=== PATIENT | female | born 1990 | race Caucasian/White ===

== ENCOUNTER 2017-01-30 03:00 | Emergency (ER) | payer OTHER ==
[~2017-01-30] VITALS: Ht 149.9 cm; Wt 63.5 kg
--- NOTE | 2017-01-30 03:00 | NUR ---
PT BIB [facility], PREBOOK. TAKEN TO OF
--- NOTE | 2017-01-30 03:00 | NUR ---
PT STATES SHE REFUSES ALL MEDICAL TREATMENT, ER MD DR BETHEA AWARE
--- NOTE | 2017-01-30 03:01 | NUR ---
Dr. Escalante evaluating patient
--- NOTE | 2017-01-30 03:19 | NUR ---
Patient does not wish to proceed with medical care recommended by DR BETHEA. Patient given information related to possible complications, up to and including , which could occur as a result of leaving hospital at this time. Patient verbalizes understanding of risks involved leaving against medical advice. Patient has REFUSED TO signed AMA form.
== END 2017-01-30 03:19 | disposition left against medical advice (07) ==
LOC: MED 03:00
DX: M25.531 Pain in right wrist (principal)
CPT/HCPCS: 99283

== ENCOUNTER 2019-06-14 19:28 | Emergency (ER) | payer OTHER ==
[~2019-06-14] VITALS: Ht 149.9 cm; Wt 61.2 kg
[2019-06-14 19:40] VITALS: BP 119/65
[2019-06-14 20:12] VITALS: BP 119/65
== END 2019-06-14 21:11 | disposition home or self-care (01) ==
LOC: MED 19:28
DX: T83.84XA Pain due to genitourinary prosthetic devices, implants and grafts, initial encounter (principal); F17.210 Nicotine dependence, cigarettes, uncomplicated; Y84.8 Other medical procedures as the cause of abnormal reaction of the patient, or of later complication, without mention of misadventure at the time of the procedure; Y92.89 Other specified places as the place of occurrence of the external cause
CPT/HCPCS: 81002; 81025; 99284